=== PATIENT | male | born 1990 | race Caucasian/White ===

== ENCOUNTER 2020-05-15 19:06 | Emergency (ER) | payer SELFPAY ==
[~2020-05-15] VITALS: Ht 175.3 cm; Wt 77.1 kg
[2020-05-15 19:17] VITALS: BP 139/94; Ht 175.3 cm; Wt 77.1 kg
== END 2020-05-15 19:31 | disposition left against medical advice (07) ==
LOC: ED 19:06
DX: F31.9 Bipolar disorder, unspecified (principal); F20.9 Schizophrenia, unspecified; F19.10 Other psychoactive substance abuse, uncomplicated
CPT/HCPCS: G0480